=== PATIENT | female | born 1965 | race African-American/Black ===

== ENCOUNTER 2017-11-05 21:35 | Emergency (ER) | payer MEDICAID, OTHER ==
[~2017-11-05] VITALS: Ht 162.6 cm; Wt 122.5 kg
[~2017-11-05 21:35] MED LIST: ADVAIR 500-501 EACH INH; ASPIR 8181 MG ORAL; BENADRYL25 M2 PO; CYANOCOBAL1000 MCG/M IM; DIABETA5 MG ORAL; HYDROCODON-ACE1 EACH ORAL; MELOXICAM15 MG PO; METFORMIN HCL500 M1 ORAL; PROMETHAZINE V237 ML ORAL; QVAR7.3 GM INH; TRAMADOL HCL50 MG ORAL; TRIAMTERENE-HC1 EAC6 PO
[2017-11-05 23:45] LABS: BASOPHILS % (AUTO) 0.3 % (0.0-2.0); EOSINOPHILS % (AUTO) 1.3 % (0.0-3.0); HEMATOCRIT 37.5 % (37.0-47.0); HEMOGLOBIN 12.5 G/DL (12.0-16.0); LYMPHOCYTES % (AUTO) 31.6 % (20.0-45.0); MEAN CORPUSCULAR VOLUME 83 FL (80-99); MONOCYTES % (AUTO) 7.9 % (1.0-10.0); NEUTROPHILS % (AUTO) 58.8 % (45.0-75.0); PLATELET COUNT 480 K/UL (150-450); RED BLOOD COUNT 4.51 M/UL (4.20-5.40); RED CELL DISTRIBUTION WIDTH 13.3 % (11.6-14.8); WHITE BLOOD COUNT 10.6 K/UL (4.8-10.8)
[2017-11-05 23:55] LABS: ANION GAP 11 mmol/L (5-15); BLOOD UREA NITROGEN 8 mg/dL (7-18); CALCIUM 8.6 MG/DL (8.5-10.1); CARBON DIOXIDE 25 MMOL/L (21-32); CHLORIDE 100 MMOL/L (98-107); CREATININE 1.4 MG/DL (0.55-1.30); POTASSIUM 3.8 MMOL/L (3.5-5.1); SODIUM 136 MMOL/L (136-145)
[2017-11-06] LABS: ALANINE AMINOTRANSFERASE 14 U/L (12-78); ALBUMIN/GLOBULIN RATIO 0.6 (1.0-2.7); ALKALINE PHOSPHATASE 91 U/L (46-116); ASPARTATE AMINO TRANSFERASE 13 U/L (15-37); BILIRUBIN,TOTAL 0.4 MG/DL (0.2-1.0)
[2017-11-06 00:05] VITALS: BP 132/87
[2017-11-06 00:06] LABS: BILIRUBIN, URINE 1+ (NEGATIVE); GLUCOSE, URINE (UA) NEGATIVE (NEGATIVE); KETONES,URINE 2+ (NEGATIVE); LEUKOCYTE ESTERASE ,URINE 3+ (NEGATIVE); NITRITE,URINE NEGATIVE (NEGATIVE); PH,URINE 5 (4.5-8.0); PROTEIN,URINE 3+ (NEGATIVE); UROBILINOGEN,URINE 4 MG/DL (0.0-1.0)
[2017-11-06 00:15] LABS: APPEARANCE,URINE CLOUDY; COLOR,URINE YELLOW
[2017-11-06] MEDS ORDERED: LEVOFLOXACIN500 MG ORAL (00:57)
[2017-11-06] MEDS ORDERED: FLAGYL500 MG ORAL (00:57)
--- NOTE | 2017-11-06 00:57 | Emergency Room Report ---
History of Present Illness General Chief Complaint: Upper Respiratory Illness Source: Patient Present Illness [facility] This is a 51-year-old female with a history diabetes and ask mom. She presents with chief complaint of chest tightness with coughing and congestion for last 2 weeks. Worse in the last for 5 days. Subjective fever chills. Cough is yellow some sputum. No nausea no vomiting. No discharge. No chest pain. Pain is 9/10 worse with coughing. Allergies: Coded Allergies: No Known Allergies (Unverified , 04/29/13) Patient History Past Medical History: see triage record, old chart reviewed, DM, asthma Past Surgical History: other Pertinent Family History: none Social History: Denies: smoking Now: No Immunizations: other Reviewed Nursing Documentation: PMH: Agreed, PSxH: Agreed Nursing Documentation-PMH Hx Cardiac Problems: Yes Hx Hypertension: Yes Hx Asthma: Yes Hx COPD: Yes Hx Diabetes: Yes Hx Cancer: No Hx Gastrointestinal Problems: Yes Hx Neurological Problems: Yes - chronic pain body Hx Peripheral Neuropathy: Yes Review of Systems Constitutional: Reports: chills, fever Eye: Reports: nose congestion, Denies: eye pain, blurred vision ENT: Denies: ear pain, nose congestion, throat swelling Respiratory: Reports: cough, shortness of breath Cardiovascular: Denies: chest pain, palpitations Gastrointestinal: Denies: abdominal pain, diarrhea, nausea, vomiting Musculoskeletal: Denies: back pain, joint pain Skin: Denies: rash Neurological: Denies: headache, numbness Endocrine: Denies: increased thirst, increased urine Hematologic/Lymphatic: Denies: easy bruising All Other Systems: negative except mentioned in HPI Physical Exam Vital Signs Date Time Temp Pulse Resp B/P (MAP) Pulse Ox O2 Delivery O2 Flow Rate FiO2 11/05/17 22:09 98.2 103 18 118/86 96 Room Air vitals normal Sp02 EP Interpretation: reviewed, normal General Appearance: well appearing, no apparent distress, alert Head: normocephalic, atraumatic Eyes: bilateral eye PERRL, bilateral eye EOMI ENT: hearing grossly normal, normal pharynx Neck: full range of motion, supple, no meningismus Respiratory: chest non-tender, lungs clear, normal breath sounds Cardiovascular #1: regular rate, rhythm, no murmur Gastrointestinal: normal bowel sounds, non tender, no mass, no organomegaly, no bruit, non-distended Musculoskeletal: back normal, gait/station normal, normal range of motion Psychiatric: anxious Skin: warm/dry Medical Decision Making Diagnostic Impression: Primary Impression: Upper respiratory infection Qualified Codes: J06.9 - Acute upper respiratory infection, unspecified Additional Impressions: UTI (urinary tract infection) Qualified Codes: N30.00 - Acute cystitis without hematuria Trichomonal cervicitis Morbid obesity with BMI of 45.0-49.9, adult ER Course Patient presents with URI symptom. No evidence of pneumonia. No evidence of CHF or ACS. Labs unremarkable. We'll discharge home. She asked for refills on her glucometer and strips. Last Vital Signs Date Time Temp Pulse Resp B/P (MAP) Pulse Ox O2 Delivery O2 Flow Rate FiO2 11/05/17 22:09 98.2 103 18 118/86 96 Room Air Status: unchanged Disposition: HOME, SELF-CARE Condition: Stable Scripts Levofloxacin (LEVOFLOXACIN*) 500 Mg Tablet 500 MG ORAL DAILY, #7 TAB Prov: KENDRICK HOFFMAN M.D. 11/06/17 Metronidazole* (FLAGYL*) 500 Mg Tablet 500 MG ORAL BID Y for bid, #14 TAB 0 Refills Prov: KENDRICK HOFFMAN M.D. 11/06/17 Referrals: NON PHYSICIAN (PCP) Patient Instructions: Upper Respiratory Infection, Adult Additional Instructions: followup with your in 7 days. Return worse. KENDRICK HOFFMAN M.D. Nov 06, 2017 00:57
[2017-11-06] MEDS ORDERED: ACCU-CHEK GUID1 EACH MC (00:59)
[2017-11-06 01:28] VITALS: BP 132/87
== END 2017-11-06 01:29 | disposition home or self-care (01) ==
LOC: EMR 22:29
DX: J06.9 Acute upper respiratory infection, unspecified (principal); N39.0 Urinary tract infection, site not specified; I10 Essential (primary) hypertension; J45.909 Unspecified asthma, uncomplicated; E11.9 Type 2 diabetes mellitus without complications
CPT/HCPCS: 36415; 80053; 80307; 81003; 83690; 85025; 87086; 96360; 99284

== ENCOUNTER 2018-12-17 23:58 | Emergency (ER) | payer OTHER ==
[~2018-12-17] VITALS: Ht 165.1 cm; Wt 117.9 kg
[~2018-12-17 23:58] MED LIST changes: +ACCU-CHEK GUID1 EACH MC; +FLAGYL500 MG ORAL; +LEVOFLOXACIN500 MG ORAL
[2018-12-18 00:10] VITALS: BP 118/64
--- NOTE | 2018-12-18 00:10 | NUR ---
ED Nurse Note: Patient YANETH RA 67 from home c/o burning sensation with urination for 5 days. Patient reports vaginal rash for 5 days. Patient BS 409 per EMS on scene. pt complaining of 10/10 pain on the vaginal area. burning when urinating. pt noted to have vaginal swelling and thick secretion and foul smelling vagina. ermd on bedside. will continue to monitor.
--- NOTE | 2018-12-18 00:22 | Emergency Room Report ---
History of Present Illness General Chief Complaint: Female Urogenital Problems Source: Patient Present Illness [facility] This is a 53-year-old female with a history of multiple medical problems including hypertension and diabetes. Resents with chief complaint of rash to her genital area. Also with dysuria and frequency. Onset for about 5 days now. Eating worse. Leighton painful. Worse with urination. Burning sensation. 9 out of 10. Has numbness and sharp pain in that area. Said she had a rash but now is spreading everywhere. Denies any trauma. Per EMS blood glucose was over 400. Allergies: Coded Allergies: No Known Allergies (Unverified , 04/29/13) Patient History Past Medical History: see triage record, old chart reviewed, DM, HTN Past Surgical History: other Pertinent Family History: none Social History: Denies: smoking Last Menstrual Period: SOFYA Now: No Immunizations: other Reviewed Nursing Documentation: PMH: Agreed; PSxH: Agreed Nursing Documentation-PMH Hx Cardiac Problems: Yes Hx Hypertension: Yes Hx Asthma: Yes Hx COPD: Yes Hx Diabetes: Yes Hx Cancer: No Hx Gastrointestinal Problems: Yes Hx Neurological Problems: Yes - chronic pain body Hx Peripheral Neuropathy: Yes Review of Systems Eye: Denies: eye pain, blurred vision ENT: Denies: ear pain, nose congestion, throat swelling Respiratory: Denies: cough, shortness of breath Cardiovascular: Denies: chest pain, palpitations Gastrointestinal: Reports: abdominal pain; Denies: diarrhea, nausea, vomiting Genitourinary: Reports: pain Musculoskeletal: Denies: back pain, joint pain Skin: Denies: rash Neurological: Denies: headache, numbness Endocrine: Denies: increased thirst, increased urine Hematologic/Lymphatic: Denies: easy bruising All Other Systems: negative except mentioned in HPI Physical Exam Vital Signs Date Time Temp Pulse Resp B/P (MAP) Pulse Ox O2 Delivery O2 Flow Rate FiO2 12/18/18 00:01 97.9 80 16 118/64 98 Room Air Sp02 EP Interpretation: reviewed, normal General Appearance: well appearing, no apparent distress, alert, obese Head: normocephalic, atraumatic Eyes: bilateral eye PERRL, bilateral eye EOMI ENT: hearing grossly normal, normal pharynx Neck: full range of motion, supple, no meningismus Respiratory: chest non-tender, lungs clear, normal breath sounds Cardiovascular #1: regular rate, rhythm, no murmur Gastrointestinal: normal bowel sounds, non tender, no mass, no organomegaly, no bruit, non-distended Genitourinary: other - Groin area: She has diffuse maceration and drainage to the genital area, perineum, and upper inner thighs area. No crepitance. Tender to palpation. Musculoskeletal: back normal, normal range of motion Neurologic: alert, oriented x3 Psychiatric: mood/affect normal Skin: warm/dry Medical Decision Making Diagnostic Impression: Primary Impression: Abscess or cellulitis of groin Additional Impressions: UTI (urinary tract infection) Qualified Codes: N30.00 - Acute cystitis without hematuria Hyperglycemia due to type 2 diabetes mellitus Qualified Codes: E11.65 - Type 2 diabetes mellitus with hyperglycemia BRITTANY (acute kidney injury) ER Course Patient presents with severe cellulitis/early abscess of the groin area. There is no crepitance to indicate necrotizing fasciitis/Gaurav's. This is probably polymicrobial. Patient is high risk for developing necrotizing fasciitis or severe infection. Antibiotics given. Insulin given for diabetes. They will for transfer. I discussed the case with who accepted patient to [facility]. Laboratory Tests Test 12/18/18 00:15 White Blood Count 11.1 K/UL (4.8-10.8) H Red Blood Count 5.24 M/UL (4.20-5.40) Hemoglobin 13.8 G/DL (12.0-16.0) Hematocrit 43.6 % (37.0-47.0) Mean Corpuscular Volume 83 FL (80-99) Mean Corpuscular Hemoglobin 26.3 PG (27.0-31.0) L Mean Corpuscular Hemoglobin Concent 31.6 G/DL (32.0-36.0) L Red Cell Distribution Width 13.6 % (11.6-14.8) Platelet Count 256 K/UL (150-450) Mean Platelet Volume 7.8 FL (6.5-10.1) Neutrophils (%) (Auto) 55.3 % (45.0-75.0) Lymphocytes (%) (Auto) 30.8 % (20.0-45.0) Monocytes (%) (Auto) 9.7 % (1.0-10.0) Eosinophils (%) (Auto) 3.0 % (0.0-3.0) Basophils (%) (Auto) 1.2 % (0.0-2.0) Urine Color Yellow Urine Appearance Cloudy Urine pH 5 (4.5-8.0) Urine Specific [place] 1.020 (1.005-1.035) Urine Protein 3+ (NEGATIVE) H Urine Glucose (UA) 4+ (NEGATIVE) H Urine Ketones 1+ (NEGATIVE) H Urine Blood 5+ (NEGATIVE) H Urine Nitrite Negative (NEGATIVE) Urine Bilirubin Negative (NEGATIVE) Urine Urobilinogen 1 MG/DL (0.0-1.0) H Urine Leukocyte Esterase 3+ (NEGATIVE) H Urine RBC Tntc /HPF (0 - 2) H Urine WBC Tntc /HPF (0 - 2) H Urine Squamous Epithelial Cells Moderate /LPF (NONE/OCC) H Urine Bacteria Many /HPF (NONE) H Sodium Level 130 MMOL/L (136-145) L Potassium Level 3.3 MMOL/L (3.5-5.1) L Chloride Level 91 MMOL/L (98-107) L Carbon Dioxide Level 27 MMOL/L (21-32) Anion Gap 13 mmol/L (5-15) Blood Urea Nitrogen 20 mg/dL (7-18) H Creatinine 2.3 MG/DL (0.55-1.30) H Estimat Glomerular Filtration Rate 26.8 mL/min (>60) Glucose Level 474 MG/DL (74-106) H Calcium Level 9.1 MG/DL (8.5-10.1) Total Bilirubin 0.6 MG/DL (0.2-1.0) Aspartate Amino Transf (AST/SGOT) 22 U/L (15-37) Alanine Aminotransferase (ALT/SGPT) 22 U/L (12-78) Alkaline Phosphatase 111 U/L (46-116) Total Protein 8.1 G/DL (6.4-8.2) Albumin 3.1 G/DL (3.4-5.0) L Globulin 5.0 g/dL Albumin/Globulin Ratio 0.6 (1.0-2.7) L Lipase 91 U/L (73-393) Lab Results Impression labs with elevated glucose and creatinine Rhythm Strip Diag. Results EP Interpretation: yes Rate: 88 Rhythm: NSR Last Vital Signs Date Time Temp Pulse Resp B/P (MAP) Pulse Ox O2 Delivery O2 Flow Rate FiO2 12/18/18 00:01 97.9 80 16 118/64 98 Room Air Status: improved Disposition: XFER [facility] HOSP Condition: Stable Juan José Luevano MD Dec 18, 2018 00:22
[2018-12-18] MEDS ORDERED: Piperacillin/Tazobactam 3.375 GM in NS 110 ML IVPB ONE (00:30)
[2018-12-18] MEDS ORDERED: HYDROmorphone 1mg/ml Carpuject IVP ONE (00:30)
[2018-12-18] MEDS ORDERED: Vancomycin 1.5gm/D5W 275ml 250 ML IVPB ONE (00:30)
[2018-12-18 00:39] LABS: APPEARANCE,URINE CLOUDY; BASOPHILS % (AUTO) 1.2 % (0.0-2.0); BILIRUBIN, URINE NEGATIVE (NEGATIVE); GLUCOSE, URINE (UA) 4+ (NEGATIVE); HEMATOCRIT 43.6 % (37.0-47.0); HEMOGLOBIN 13.8 G/DL (12.0-16.0); KETONES,URINE 1+ (NEGATIVE); LEUKOCYTE ESTERASE ,URINE 3+ (NEGATIVE); LYMPHOCYTES % (AUTO) 30.8 % (20.0-45.0); MEAN CORPUSCULAR VOLUME 83 FL (80-99); MONOCYTES % (AUTO) 9.7 % (1.0-10.0); NEUTROPHILS % (AUTO) 55.3 % (45.0-75.0); NITRITE,URINE NEGATIVE (NEGATIVE); PH,URINE 5 (4.5-8.0); PLATELET COUNT 256 K/UL (150-450); PROTEIN,URINE 3+ (NEGATIVE); RED BLOOD COUNT 5.24 M/UL (4.20-5.40); RED CELL DISTRIBUTION WIDTH 13.6 % (11.6-14.8); UROBILINOGEN,URINE 1 MG/DL (0.0-1.0); WHITE BLOOD COUNT 11.1 K/UL (4.8-10.8)
[2018-12-18 00:49] LABS: ANION GAP 13 mmol/L (5-15); BLOOD UREA NITROGEN 20 mg/dL (7-18); CALCIUM 9.1 MG/DL (8.5-10.1); CARBON DIOXIDE 27 MMOL/L (21-32); CHLORIDE 91 MMOL/L (98-107); CREATININE 2.3 MG/DL (0.55-1.30); POTASSIUM 3.3 MMOL/L (3.5-5.1); SODIUM 130 MMOL/L (136-145)
[2018-12-18 00:53] LABS: ALANINE AMINOTRANSFERASE 22 U/L (12-78); ALBUMIN 3.1 G/DL (3.4-5.0); ALBUMIN/GLOBULIN RATIO 0.6 (1.0-2.7); ALKALINE PHOSPHATASE 111 U/L (46-116); ASPARTATE AMINO TRANSFERASE 22 U/L (15-37); BILIRUBIN,TOTAL 0.6 MG/DL (0.2-1.0); COLOR,URINE YELLOW
[2018-12-18] MEDS ORDERED: Insulin Human Regular 100units/ml 3ml IV ONE (01:45)
[2018-12-18 03:30] VITALS: BP 132/70
[2018-12-18 03:35] VITALS: BP 132/70
--- NOTE | 2018-12-18 03:35 | NUR ---
ED Nurse Note: pt was tranfered to [facility], report given to chun,. pt was transfered robin [facility].
== END 2018-12-18 03:35 | disposition short-term general hospital (02) ==
LOC: EDBD 23:58 → EMR 12-18 00:15
DX: L02.214 Cutaneous abscess of groin (principal); N39.0 Urinary tract infection, site not specified; E11.65 Type 2 diabetes mellitus with hyperglycemia; N17.9 Acute kidney failure, unspecified; I10 Essential (primary) hypertension; J44.9 Chronic obstructive pulmonary disease, unspecified; G89.29 Other chronic pain
CPT/HCPCS: 36415; 80053; 81003; 82962; 83690; 85025; 87070; 87086; 87181; 87205; 96361; 96365; 96367; 96375; 99285; J1170; J1815; J2405; J2543; J3370

== ENCOUNTER 2019-04-02 10:07 | Emergency (ER) | payer OTHER ==
[~2019-04-02] VITALS: Ht 162.6 cm; Wt 120.2 kg
[2019-04-02 10:21] VITALS: BP 136/70
--- NOTE | 2019-04-02 10:23 | NUR ---
ED Nurse Note: biba from home c/o sob sore throat and chest pain from coughing. vss fabiend loboal done pt speaking in clear full sentences.
[2019-04-02] MEDS ORDERED: Augmentin 875mg Tab ORAL ONE (10:30)
[2019-04-02] MEDS ORDERED: Dexamethasone 4mg/ml vial IM ONE (10:30)
[2019-04-02] MEDS ORDERED: Dexamethasone 4mg/ml vial ONE ×2 (10:38→10:43)
[2019-04-02] MEDS ORDERED: Augmentin 875mg Tab ONE (10:39)
[2019-04-02] MEDS ORDERED: Albuterol ud Inhalation ONE ×3 (10:41→11:03)
[2019-04-02] MEDS ORDERED: Ipratropium 0.02% Inh Soln 2.5ml UD ONE ×2 (10:41→11:03)
[2019-04-02] MEDS: Albuterol ud Inhalation HHN SCH ×3 (10:48→11:05)
[2019-04-02] MEDS: Ipratropium 0.02% Inh Soln 2.5ml UD HHN SCH ×3 (10:48→11:05)
--- NOTE | 2019-04-02 11:03 | NUR ---
ED Nurse Note: pt on her cell while getting her hhn.
[2019-04-02] MEDS ORDERED: ALBUTEROL SULF8.5 GM INH (12:14)
[2019-04-02] MEDS ORDERED: AUGMENTIN 875-1 EAC1 ORAL (12:14)
[2019-04-02] MEDS ORDERED: PREDNISONE20 MG ORAL (12:14)
[2019-04-02 12:45] VITALS: BP 136/75
--- NOTE | 2019-04-02 13:35 | NUR ---
ED Nurse Note: pt given aci and script verbalized understanding ambulated out of er with strong and steady gait with taxi voucher at hand.
--- NOTE | 2019-04-02 14:05 | Emergency Room Report ---
History of Present Illness General Chief Complaint: Dyspnea/Respdistress Source: EMS Present Illness HPI 53-year-old female presents ED for evaluation. Brought in by EMS for shortness of breath. Started today. History of asthma. Given breathing treatment by EMS. States she is feeling somewhat better. Denies cough. Denies fevers or chills. States that she has a sore throat. The she has frequent history of tonsillitis. No other aggravating relieving factors. Denies any other associated symptoms Allergies: Coded Allergies: IBUPROFEN (Unverified Allergy, Unknown, 04/02/19) Patient History Past Medical History: HTN, asthma, COPD Past Surgical History: none Pertinent Family History: none Social History: Denies: smoking, alcohol use, drug use Now: No Immunizations: UTD Reviewed Nursing Documentation: PMH: Agreed; PSxH: Agreed Nursing Documentation-PMH Past Medical History: No History, Except For Hx Cardiac Problems: Yes Hx Hypertension: Yes Hx Asthma: Yes Hx COPD: Yes Hx Diabetes: Yes Hx Cancer: No Hx Gastrointestinal Problems: Yes Hx Neurological Problems: Yes - chronic pain body Hx Peripheral Neuropathy: Yes Review of Systems All Other Systems: negative except mentioned in HPI Physical Exam Vital Signs Date Time Temp Pulse Resp B/P (MAP) Pulse Ox O2 Delivery O2 Flow Rate FiO2 04/02/19 09:59 102 18 142/89 (106) 98 Room Air 04/02/19 10:21 98.6 04/02/19 10:48 21 Sp02 EP Interpretation: reviewed, normal General Appearance: no apparent distress, alert, GCS 15, non-toxic, obese Head: normocephalic Eyes: bilateral eye normal inspection, bilateral eye PERRL ENT: hearing grossly normal, no angioedema, normal voice, TMs + canals normal, pharyngeal erythema, tonsillar exudate Neck: full range of motion, supple/symm/no masses Respiratory: decreased breath sounds, wheezing Cardiovascular #1: regular rate, rhythm, no edema Gastrointestinal: normal inspection Rectal: deferred Genitourinary: no CVA tenderness Musculoskeletal: normal inspection Neurologic: alert, oriented x3, responsive, motor strength/tone normal, sensory intact, speech normal Psychiatric: normal inspection Skin: normal inspection Lymphatic: normal inspection Medical Decision Making Diagnostic Impression: Primary Impression: Asthma exacerbation Qualified Codes: J45.901 - Unspecified asthma with (acute) exacerbation Additional Impression: Pharyngitis Qualified Codes: J02.9 - Acute pharyngitis, unspecified ER Course Hospital Course 53-year-old female presents to ED complaining of cough, wheezing. Differential diagnoses include: URI, bronchitis, asthma/COPD, pneumonia Clinical course Patient placed on stretcher. After initial history and physical I ordered decadron, augmentin and nebulizer treatment. Upon reassessment patient states cough and symptoms have improved. Discussed findings with patient. There is evidence of tonsillitis/pharyngitis. We'll discharge with antibiotics. Provide prescription for inhaler and steroids. Safe for discharge and close outpatient follow-up. States she has a PMD Diagnosis - asthma exacerbation, pharyngitis Stable and discharged home with prescriptions for Rx augmentin, prednisone, albuterol. Instructed to followup with PMD. Return to ED if symptoms recur or worsen Last Vital Signs Date Time Temp Pulse Resp B/P (MAP) Pulse Ox O2 Delivery O2 Flow Rate FiO2 04/02/19 12:45 98.6 87 20 136/75 98 Room Air 21 Status: improved Disposition: HOME, SELF-CARE Condition: Stable Scripts Amoxicillin/Potassium Clav 875-125* (AUGMENTIN 875-125 TABLET*) 1 Each Tablet 1 TAB ORAL TWICE A DAY, #14 TAB Prov: Juarez Campbell MD 04/02/19 Albuterol Sulfate* (ALBUTEROL SULFATE MDI*) 8.5 Gm Hfa.aer.ad 2 PUFF INH Q6H, #1 EA 0 Refills Prov: Juarez Campbell MD 04/02/19 Prednisone* (PREDNISONE*) 20 Mg Tablet 40 MG ORAL DAILY, #10 TAB Prov: Juarez Campbell MD 04/02/19 Referrals: NON PHYSICIAN (PCP) Patient Instructions: Form - Asthma Action Plan, Adult Juarez Campbell MD April 02, 2019 14:05
== END 2019-04-02 13:36 | disposition home or self-care (01) ==
LOC: EDBD 10:07 → EMR 12:25
DX: J45.901 Unspecified asthma with (acute) exacerbation (principal); J02.9 Acute pharyngitis, unspecified; I10 Essential (primary) hypertension; J44.9 Chronic obstructive pulmonary disease, unspecified; E11.9 Type 2 diabetes mellitus without complications; G89.29 Other chronic pain
CPT/HCPCS: 94640; 94664; 96372; 99283; J1100

== ENCOUNTER 2020-10-19 16:53 | Emergency (ER) | payer OTHER ==
[~2020-10-19] VITALS: Ht 162.6 cm; Wt 127.0 kg
[~2020-10-19 16:53] MED LIST changes: +ALBUTEROL SULF8.5 GM INH; +AUGMENTIN 875-1 EAC1 ORAL; +PREDNISONE20 MG ORAL
--- NOTE | 2020-10-19 17:02 | NUR ---
ED Nurse Note: Pt walked in from home. gait steady, vitals stable as documetned on RA. PT fell earlier today with right arm pain. she is moaning and grasping at the site. very tender to the touch. Pt has equal strong peripheral pulses. Xray done at bedside.
[2020-10-19 17:12] VITALS: BP 135/82
[2020-10-19] MEDS ORDERED: HYDROcodone/Acetamin 5/325 tab ORAL ONE (17:15)
--- NOTE | 2020-10-19 18:07 | Diagnostic Imaging Report ---
EXAM: XR Right Shoulder Complete, 2 or More Views CLINICAL HISTORY: PAIN TECHNIQUE: Two or more views of the right shoulder. COMPARISON: No relevant prior studies available. FINDINGS: Bones/joints: Moderate degenerative changes right glenohumeral joint. Joint space narrowing and osteophyte formation in the right glenohumeral joint. No acute fracture. No dislocation. Soft tissues: Unremarkable. IMPRESSION: Moderate degenerative changes right glenohumeral joint.
--- NOTE | 2020-10-19 18:11 | Emergency Room Report ---
History of Present Illness General Chief Complaint: Upper Extremity Injury Source: Patient Present Illness HPI Disclaimer: Please note that this report is being documented using [employer] technology. This can lead to erroneous entry secondary to incorrect interpretation by the dictating instrument. HPI: 54-year-old female history of hypertension,, diabetes, obesity presented after a mechanical fall. She states she slipped and fell down some stairs landing on her right shoulder. Complaining of right shoulder pain that is approximately 8 out of 10 worse with movement. No other injuries reported. Patient did not hit her head. No vision changes. Allergies: Coded Allergies: IBUPROFEN (Unverified Allergy, Unknown, 04/02/19) COVID-19 Screening Contact w/high risk pt: No Experienced COVID-19 symptoms?: No COVID-19 Testing performed [facility]: Yes COVID-19 Screening: Negative COVID-19 COVID-19 Testing Source: nasal Patient History Now: No Reviewed Nursing Documentation: PMH: Agreed; PSxH: Agreed Nursing Documentation-PMH Past Medical History: No History, Except For Hx Cardiac Problems: Yes Hx Hypertension: Yes Hx Asthma: Yes Hx COPD: Yes Hx Diabetes: Yes Hx Cancer: No Hx Gastrointestinal Problems: Yes Hx Neurological Problems: Yes - chronic pain body Hx Peripheral Neuropathy: Yes Review of Systems All Other Systems: negative except mentioned in HPI Physical Exam Vital Signs Date Time Temp Pulse Resp B/P (MAP) Pulse Ox O2 Delivery O2 Flow Rate FiO2 10/19/20 17:02 98.4 83 16 114/67 (83) 96 Room Air Sp02 EP Interpretation: reviewed, normal General Appearance: well appearing, no apparent distress Head: normocephalic, atraumatic Eyes: bilateral eye PERRL, bilateral eye EOMI ENT: hearing grossly normal, moist mucus membranes Neck: full range of motion, supple Respiratory: lungs clear, normal breath sounds, no rhonchi, no respiratory distress, no retraction, no wheezing Cardiovascular #1: normal peripheral pulses, regular rate, rhythm, no murmur Gastrointestinal: non tender, soft, non-distended, no guarding Musculoskeletal: other - Right shoulder tender to palpation with decreased range of motion secondary to pain. 2+ pulses distally. No deformity noted. Neurologic: alert, oriented x3, no focal defects Skin: normal color, warm/dry Medical Decision Making Diagnostic Impression: Primary Impression: Contusion of right shoulder ER Course MDM: Differential included but not limited to contusion, fracture, dislocation to name a few. Clinical course-pain control given. X-rays of the right shoulder humerus and elbow showed no evidence of acute fracture or dislocation. Patient did have arthritic changes noted in the right glenohumeral joint. Patient given pain control. Was placed in a right arm sling. Will be discharged home with pain control and follow-up with PMD. Return precautions given. Other X-Ray Diagnostic Results Other X-Ray Diagnostic Results #1: X-Ray ordered: Right shoulder # of Views/Limited Vs Complete: 2 View Indication: Pain Impression: Other - Arthritic changes noted without acute fracture or dislocation Electronically Signed by: Mian Vizcarra MD Other X-Ray Diagnostic Results #2: X-Ray ordered: Right humerus # of Views/Limited Vs Complete: 2 View Indication: Pain Interpretation: no dislocation, no soft tissue swelling Impression: No acute disease Electronically Signed by: Mian Vizcarra MD Other X-Ray Diagnostic Results #3: X-Ray ordered: Right elbow # of Views/Limited Vs Complete: 2 View Indication: Pain Interpretation: no dislocation, no fractures Impression: No acute disease Electronically Signed by: Mian Vizcarra MD Last Vital Signs Date Time Temp Pulse Resp B/P (MAP) Pulse Ox O2 Delivery O2 Flow Rate FiO2 10/19/20 17:02 98.4 83 16 114/67 (83) 96 Room Air Status: improved Disposition: HOME, SELF-CARE Condition: Improved Scripts Hydrocodone Bit/Acetaminophen 5-325* (NORCO 5-325 TABLET*) 1 Each Tablet 1 TAB ORAL Q6H PRN for FOR PAIN, #12 TAB 0 Refills Prov: Mian Vizcarra M.D. 10/19/20 Referrals: [facility],REFERRING (PCP) Mian Vizcarra M.D. Oct 19, 2020 18:11
[2020-10-19] MEDS ORDERED: NORCO 5-325 TA1 EAC1 ORAL (18:18)
[2020-10-19 18:48] VITALS: BP 115/80
--- NOTE | 2020-10-19 18:49 | NUR ---
ER DISCHARGE NOTE: Patient is cleared to be discharged per ERMD, pt is aox4, on room air, with stable vital signs. pt was given dc and prescription instructions, pt was able to verbalize understanding, pt id band removed. pt is able to ambulate with steady gait. pt took all belongings.
--- NOTE | 2020-10-20 14:35 | Diagnostic Imaging Report ---
Indications: Arm pain Technique: Two views of the right humerus Comparison: None Findings: There are degenerative proliferative changes and degenerative remodeling of the humeral head. No acute fracture or dislocation. Impression: No acute process
--- NOTE | 2020-10-20 17:47 | Diagnostic Imaging Report ---
Indication: Pain, status post fall Technique: 2 views of the right elbow Comparison: none Findings: Positioning is severely suboptimal, per technologist, patient uncooperative and difficult to position due to pain there is no gross acute fracture. Cannot rule out effusion due to lack of the lateral view Impression: Extremely limited essentially nondiagnostic exam. No gross acute abnormality
== END 2020-10-19 18:46 | disposition home or self-care (01) ==
LOC: EMR 17:30
DX: S40.011A Contusion of right shoulder, initial encounter (principal); I11.9 Hypertensive heart disease without heart failure; J44.9 Chronic obstructive pulmonary disease, unspecified; E11.9 Type 2 diabetes mellitus without complications; W10.9XXA Fall (on) (from) unspecified stairs and steps, initial encounter; Y93.01 Activity, walking, marching and hiking; Y92.9 Unspecified place or not applicable; Z88.6 Allergy status to analgesic agent
CPT/HCPCS: 73030; 73060; 73080; Z7502; 99284